=== PATIENT | female | born 1955 | race Caucasian/White ===

== ENCOUNTER 2022-09-07 01:51 | Emergency (ER) | payer BC, MEDICARE ==
[2022-09-07 02:03] LABS: BASOPHILS ABSOLUTE AUTO 0.04 K/uL (0.00-0.10); BASOPHILS PERCENT AUTO 0.6 % (0.1-1.3); EOSINOPHILS PERCENT AUTO 1.5 % (0.0-5.4); HEMATOCRIT 38.6 % (34.3-46.0); HEMOGLOBIN 12.8 g/dL (11.2-15.5); IMMATURE GRAN PERCENT AUTO 0.1 % (0.0-0.7); LYMPHOCYTES ABSOLUTE AUTO 2.35 K/uL (0.8-3.3); LYMPHOCYTES PERCENT AUTO 34.6 % (11.4-47.7); MEAN CORPUSCULAR HEMOGLOBIN 28.7 pg (31.6-35.5); MEAN CORPUSCULAR HGB CONC 33.2 g/dL (31.6-35.5); MEAN CORPUSCULAR VOLUME 86.5 fL (81.4-99.0); MONOCYTES ABSOLUTE AUTO 0.67 K/uL (0.20-0.90); MONOCYTES PERCENT AUTO 9.9 % (3.3-12.6); NEUTROPHILS ABSOLUTE AUTO 3.63 K/uL (1.0-7.6); NEUTROPHILS PERCENT AUTO 53.3 % (40.0-78.1); PLATELET COUNT,PLT 298 K/uL (130-375); RED BLOOD CELL COUNT 4.46 M/uL (3.77-5.24); WHITE BLOOD CELL COUNT,WBC 6.8 K/uL (3.2-11.0)
[2022-09-07 02:04] LABS: IMMATURE GRAN ABSOLUTE AUTO 0.01 K/uL (0.00-0.23)
[2022-09-07] MEDS ORDERED: Aspirin 81 MG Tab.Chew PO ONE (02:08)
[2022-09-07 02:26] LABS: A/G RATIO 1.1 (1.2-2.2); ALANINE AMINOTRANSFERASE,ALT 32 U/L (12-78); ALBUMIN 3.8 g/dL (3.4-5.0); ALKALINE PHOSPHATASE 110 U/L (46-116); ASPARTATE AMNIOTRANSFERASE,AST 26 U/L (15-37); BILIRUBIN TOTAL 0.3 mg/dL (0.2-1.0); BLOOD UREA NITROGEN,BUN 23 mg/dL (7-18); CALCIUM 9.1 mg/dL (8.5-10.1); CARBON DIOXIDE,CO2 29 mmol/L (21-32); CHLORIDE,CL 103 mmol/L (100-108); CREATININE 0.9 mg/dL (0.6-1.0); EST CRCL DRUG DOSING (CG) 62.52 mL/min; ESTIMATED GFR 70 mL/min (>60); GLUCOSE RANDOM 124 mg/dL (74-106); POTASSIUM,K 3.9 mmol/L (3.6-5.2); PROTEIN TOTAL,TP 7.4 g/dL (6.4-8.2); SODIUM,NA 139 mmol/L (140-148); TROPONIN I HIGH SENSITIVITY 45.4 pg/mL (<=60.3)
[2022-09-07 02:27] LABS: ANION GAP 10.9 mmol/L (5.0-14.0)
== END 2022-09-07 03:41 | disposition home or self-care (01) ==
LOC: JP.ED 01:51
DX: R07.89 Other chest pain (principal); Z88.0 Allergy status to penicillin
CPT/HCPCS: 36415; 71046; 80053; 84484; 85025; 85379; 93005; 99284; A9270

== ENCOUNTER 2022-09-07 20:33 | Emergency (ER) | payer MEDICARE ==
[2022-09-07] MEDS ORDERED: Aspirin 81 MG Tab.Chew PO ONE (20:47)
[2022-09-07] MEDS ORDERED: Heparin Sodium 5,000 Units/ML Vial IVPUSH ONE (20:47)
[2022-09-07] MEDS ORDERED: Nitroglycerin 0.4 MG Tab.SL SL ONE (20:48)
[2022-09-07 20:59] LABS: BASOPHILS PERCENT AUTO 0.2 % (0.1-1.3); EOSINOPHILS PERCENT AUTO 0.2 % (0.0-5.4); HEMATOCRIT 38.1 % (34.3-46.0); HEMOGLOBIN 12.9 g/dL (11.2-15.5); IMMATURE GRAN ABSOLUTE AUTO 0.03 K/uL (0.00-0.23); IMMATURE GRAN PERCENT AUTO 0.3 % (0.0-0.7); LYMPHOCYTES ABSOLUTE AUTO 1.72 K/uL (0.8-3.3); LYMPHOCYTES PERCENT AUTO 19.5 % (11.4-47.7); MEAN CORPUSCULAR HEMOGLOBIN 29.1 pg (31.6-35.5); MEAN CORPUSCULAR HGB CONC 33.9 g/dL (31.6-35.5); MONOCYTES ABSOLUTE AUTO 0.67 K/uL (0.20-0.90); MONOCYTES PERCENT AUTO 7.6 % (3.3-12.6); NEUTROPHILS ABSOLUTE AUTO 6.38 K/uL (1.0-7.6); NEUTROPHILS PERCENT AUTO 72.2 % (40.0-78.1); PLATELET COUNT,PLT 354 K/uL (130-375); RED BLOOD CELL COUNT 4.43 M/uL (3.77-5.24); WHITE BLOOD CELL COUNT,WBC 8.8 K/uL (3.2-11.0)
[2022-09-07] MEDS ORDERED: Heparin Sodium/D5W 25,000 UNITS/500 ML BAG IV SCH (21:00)
[2022-09-07 21:09] LABS: BASOPHILS ABSOLUTE AUTO 0.02 K/uL (0.00-0.10); EOSINOPHILS ABSOLUTE AUTO 0.02 K/uL (0.00-0.40)
[2022-09-07 21:14] LABS: ANION GAP 12.5 mmol/L (5.0-14.0); CALCIUM 9.1 mg/dL (8.5-10.1); CREATININE 0.9 mg/dL (0.6-1.0); EST CRCL DRUG DOSING (CG) 62.52 mL/min; POTASSIUM,K 3.5 mmol/L (3.6-5.2)
[2022-09-07 21:15] LABS: TROPONIN I HIGH SENSITIVITY 1838.6 pg/mL (<=60.3)
== END 2022-09-07 21:30 | disposition other institution (70) ==
LOC: JP.ED 20:33
DX: I21.09 ST elevation (STEMI) myocardial infarction involving other coronary artery of anterior wall (principal); Z88.0 Allergy status to penicillin; Z79.899 Other long term (current) drug therapy
CPT/HCPCS: 36415; 80048; 84484; 85025; 93005; 96365; 96376; 99285; A9270; J1644